=== PATIENT | female | born 1940 | race Caucasian/White ===

== ENCOUNTER 2021-04-22 10:25 | Emergency (ER) | payer MEDICARE, OTHER ==
[~2021-04-22] VITALS: Ht 154.9 cm; Wt 54.4 kg
[2021-04-22] MEDS ORDERED: CEPHALEXIN500 MG PO (11:25)
[2021-04-22 11:30] VITALS: BP 172/75
== END 2021-04-22 11:31 | disposition home or self-care (01) ==
LOC: M.ERS 10:25
DX: I80.01 Phlebitis and thrombophlebitis of superficial vessels of right lower extremity (principal); Z90.49 Acquired absence of other specified parts of digestive tract; Z90.89 Acquired absence of other organs; Z88.8 Allergy status to other drugs, medicaments and biological substances; Z88.5 Allergy status to narcotic agent; Z88.1 Allergy status to other antibiotic agents